=== PATIENT | female | born 1965 | race Caucasian/White ===

== ENCOUNTER 2018-10-31 07:59 | Day surgery (SDC) | payer MEDICAID, OTHER ==
[~2018-10-31] VITALS: Ht 160 cm; Wt 102.1 kg
[2018-10-31] MEDS ORDERED: fentaNYL 0.05 MG/ML VIAL ONE (09:09)
[2018-10-31] MEDS ORDERED: LIDOCAINE 2% 100 MG/5 ML UJET TP ONE (09:09)
[2018-10-31] MEDS ORDERED: MIDAZOLAM 2 MG/2 ML VIAL ONE (09:23)
[2018-10-31] MEDS ORDERED: MIDAZOLAM 2 MG/2 ML VIAL IVP ONE (10:05)
[2018-10-31] MEDS ORDERED: fentaNYL 0.05 MG/ML VIAL IVP ONE ×2 (10:05→11:40)
== END 2018-10-31 10:40 | disposition home or self-care (01) ==
LOC: MMU 07:59 → MOR 07:59
PROVIDERS: ATTEND Internal Medicine Gastroenterology
DX: Z12.11 Encounter for screening for malignant neoplasm of colon (principal); D12.2 Benign neoplasm of ascending colon; K51.80 Other ulcerative colitis without complications; E66.9 Obesity, unspecified; J45.909 Unspecified asthma, uncomplicated; I10 Essential (primary) hypertension; N92.0 Excessive and frequent menstruation with regular cycle; Z86.010 Personal history of colon polyps; Z90.710 Acquired absence of both cervix and uterus; Z88.2 Allergy status to sulfonamides; Z79.899 Other long term (current) drug therapy; Z88.8 Allergy status to other drugs, medicaments and biological substances
CPT/HCPCS: 45385; J2250; J3010

== ENCOUNTER 2020-07-29 08:57 | Day surgery (SDC) | payer OTHER, MEDICAID ==
[~2020-07-29] VITALS: Ht 160 cm; Wt 104.3 kg
[2020-07-29 09:48] LABS: BASOPHILS % (AUTO) 0.3 % (0.0-2.0); EOSINOPHILS # (AUTO) 0.1 K/uL (0-0.4); EOSINOPHILS % (AUTO) 1.6 % (0.0-4.0); HEMATOCRIT 40.4 % (36-48); HEMOGLOBIN 13.8 g/dL (12.0-16.0); LYMPHOCYTES # (AUTO) 2.2 K/uL (2.5-16.5); LYMPHOCYTES % (AUTO) 28.6 % (20.5-51.1); MEAN CORPUSCULAR HEMOGLOBIN 31 pg (27-31); MEAN CORPUSCULAR HGB CONC 34 g/dL (33-37); MONOCYTES # (AUTO) 0.5 K/uL (0.8-1.0); MONOCYTES % (AUTO) 6.7 % (1.7-9.3); NEUTROPHILS # (AUTO) 4.9 K/uL (1.8-7.7); NEUTROPHILS % (AUTO) 62.8 % (42.2-75.2); PLATELET COUNT (AUTO) 202 K/uL (140-450); RED BLOOD CELL COUNT(AUTO) 4.49 MIL/uL (4.20-5.40); WHITE BLOOD COUNT (AUTO) 7.8 K/uL (4.8-10.8)
[2020-07-29 10:04] LABS: PROTHROMBIN TIME 10.8 secs (10.8-13.4)
[2020-07-29] MEDS ORDERED: fentaNYL citrate 0.05 MG/ML VIAL ONE (10:33)
[2020-07-29] MEDS ORDERED: LIDOCAINE 2% 1000 MG/50 ML VIAL INJ ONE ×2 (10:33→11:20)
[2020-07-29] MEDS ORDERED: fentaNYL citrate 0.05 MG/ML VIAL IVP ONE (11:20)
[2020-07-29] MEDS ORDERED: HYDROcodone/APAP 7.5/325 MG 1 TAB PO PRN ×2 (11:40→11:45)
== END 2020-07-29 13:05 | disposition home or self-care (01) ==
LOC: MMU 08:57 → MDS 08:57
PROVIDERS: ATTEND Internal Medicine Gastroenterology
DX: R94.5 Abnormal results of liver function studies (principal); K51.319 Ulcerative (chronic) rectosigmoiditis with unspecified complications; F32.9 Major depressive disorder, single episode, unspecified; F41.9 Anxiety disorder, unspecified; E66.01 Morbid (severe) obesity due to excess calories; F43.10 Post-traumatic stress disorder, unspecified; Z88.2 Allergy status to sulfonamides; Z90.710 Acquired absence of both cervix and uterus; Z79.899 Other long term (current) drug therapy; Z20.822 Contact with and (suspected) exposure to COVID-19
CPT/HCPCS: 36415; 47000; 76942; 85025; 85610; 85730; 88307; 88313; J2001; J3010; U0003